=== PATIENT | female | born 1955 | race Caucasian/White ===

== ENCOUNTER 2019-08-01 00:18 | Emergency (ER) | payer MEDICARE ==
[~2019-08-01] VITALS: Ht 167.6 cm; Wt 96.0 kg
[2019-08-01] MEDS ORDERED: NAPR220C2 PO (00:36)
[2019-08-01] MEDS ORDERED: ACET-1600 PO (00:36)
[2019-08-01] MEDS ORDERED: IBUP200T64 PO (00:36)
[2019-08-01] MEDS ORDERED: KETOROLAC 30 MG/1 ML ONE (00:44)
[2019-08-01] MEDS ORDERED: KETOROLAC 30 MG/1 ML IVPush ONE (01:00)
[2019-08-01] MEDS ORDERED: METHOCARBAMOL 750 MG TABLET PO ONE (01:30)
[2019-08-01] MEDS ORDERED: METHOCARBAMOL 750 MG TABLET ONE (01:38)
[2019-08-01 01:52] VITALS: BP 150/66
--- NOTE | 2019-08-01 01:53 | NUR ---
pt able to ambulate steadily to bathroom, however with severe pain. orders for meds placed, med given. pt spouse here to take pt home.
== END 2019-08-01 01:54 | disposition home or self-care (01) ==
LOC: ED 01:41
DX: S39.012A Strain of muscle, fascia and tendon of lower back, initial encounter (principal); W19.XXXA Unspecified fall, initial encounter; Y93.89 Activity, other specified; Y92.89 Other specified places as the place of occurrence of the external cause; Y99.8 Other external cause status
CPT/HCPCS: 96374; 99283; J1885

== ENCOUNTER → 2019-11-24 | Outpatient (CLI) | payer MEDICARE ==
[~2019-11-24] MED LIST: ACET-1600 PO; IBUP200T64 PO; NAPR220C2 PO
== END | disposition home or self-care (01) ==
LOC: RAD 14:17
PROVIDERS: ATTEND Emergency Medicine
DX: N28.1 Cyst of kidney, acquired (principal); N39.0 Urinary tract infection, site not specified; R10.9 Unspecified abdominal pain; R31.9 Hematuria, unspecified
CPT/HCPCS: 76770

== ENCOUNTER 2020-02-26 12:15 | Outpatient (CLI) | payer MEDICARE ==
[2020-02-26] MEDS ORDERED: GLUC1CAP13 PO (12:49)
[2020-02-26] MEDS ORDERED: MV-M1TAB29 PO (12:49)
[2020-02-26] MEDS ORDERED: ASCO250T2 PO (12:49)
[2020-02-26] MEDS ORDERED: MAGN400T9 PO (12:49)
[2020-02-26] MEDS ORDERED: BROM500T2 PO (12:49)
[2020-02-26] MEDS ORDERED: CALC1CAP8 PO (12:53)
[2020-02-26] MEDS ORDERED: CRAN250C PO (12:53)
[2020-02-26] MEDS ORDERED: CHOL200074 PO (12:53)
[2020-02-26] MEDS ORDERED: MULT-658 PO (12:53)
[2020-02-26] MEDS ORDERED: FAMO1TAB3 PO (12:53)
[2020-02-26] MEDS ORDERED: turmeric PO (13:11)
[2020-02-26] MEDS ORDERED: coq-10 PO (13:11)
== END 2020-02-26 23:59 | disposition home or self-care (01) ==
LOC: STAR 12:15
PROVIDERS: ATTEND Orthopaedic Surgery
DX: Z01.818 Encounter for other preprocedural examination (principal); M17.11 Unilateral primary osteoarthritis, right knee; M25.561 Pain in right knee; I44.4 Left anterior fascicular block; I45.19 Other right bundle-branch block
CPT/HCPCS: 93005

== ENCOUNTER 2020-03-16 14:51 | Emergency (ER) | payer MEDICARE ==
[~2020-03-16] VITALS: Ht 167.6 cm; Wt 104.4 kg
[~2020-03-16 14:51] MED LIST changes: +ASCO250T2 PO; +BROM500T2 PO; +CALC1CAP8 PO; +CHOL200074 PO; +CRAN250C PO; +FAMO1TAB3 PO; +GLUC1CAP13 PO; +MAGN400T9 PO; +MULT-658 PO; +MV-M1TAB29 PO; +coq-10 PO; +turmeric PO
--- NOTE | 2020-03-16 15:20 | NUR ---
ASSUMED CARE OF PT AT THIS FROM TRIAGE. TAKEN TO ROOM VIA WHEELCHAIR. PT ABLE TO STAND AND TRANSFER SELF TO BED. LAZARO CHAVEZ AT BEDSIDE FOR EVALUATION. 65 Y/O F PRESENTS STATING "RIGHT KNEE MENISCUS REPAIR ON 03/11, LAST 4 DAYS NOTICED PAIN WHEN I WALK AND SOME SWELLING, MAYBE A WARM SPOT THIS MORNING, I CAME IN TO MAKE SURE IT IS NOT A BLOOD CLOT. HAD ONE 40 YEARS." CMS INTACT. PEDAL PULSE NORMAL AND STRONG. SLIGHT SWELLING NOTED TO RIGHT CALF, NO WARMTH OR ERYTHEMA NOTED. 3 SURGICAL INCISIONS WITH SUTURES IN PLACE TO RIGHT KNEE, EDGES WELL APPROXIMATED, MINIMAL REDNESS AT SITES, CDI, NO OOZING OR DISCHARGE NOTED. CONT PULSE OX, BP MONITORS APPLIED. VSS. CALL LIGHT IN REACH. FALL PRECAUTIONS IN PLACE. A&OX4. SPOUSE AT BEDSIDE. DENIES ANY CP, SOB OR PAIN AT THIS TIME. "THE PAIN IS ONLY SOMETIMES WHEN I WALK."
--- NOTE | 2020-03-16 15:49 | NUR ---
PT AWAITING US
--- NOTE | 2020-03-16 16:14 | NUR ---
US AT BEDSIDE
[2020-03-16 16:28] VITALS: BP 145/81
--- NOTE | 2020-03-16 16:28 | NUR ---
PT RESTING COMFORTABLY. DENIES ANY PAIN AND NEED TO USE RESTROOM. US REMAINS AT BEDSIDE. VSS. CALL LIGHT IN REACH. FALL PRECAUTIONS IN PLACE.
--- NOTE | 2020-03-16 17:27 | NUR ---
REPORT AND CARE TO BREAK SAMSON LOOMIS AT THIS TIME.
== END 2020-03-16 17:46 | disposition home or self-care (01) ==
LOC: ED 16:44
DX: S86.911A Strain of unspecified muscle(s) and tendon(s) at lower leg level, right leg, initial encounter (principal); Z86.718 Personal history of other venous thrombosis and embolism; X58.XXXA Exposure to other specified factors, initial encounter; Y93.89 Activity, other specified; Y92.89 Other specified places as the place of occurrence of the external cause; Y99.8 Other external cause status
CPT/HCPCS: 99284

== ENCOUNTER 2020-11-30 10:34 | Observation (INO) | payer MEDICARE ==
[~2020-11-30] VITALS: Ht 167.6 cm; Wt 106.9 kg
[~2020-11-30 10:34] MED LIST changes: +ASCO250T12 PO; -ASCO250T2 PO
--- NOTE | 2020-11-30 10:41 | NUR ---
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
--- NOTE | 2020-11-30 11:06 | NUR ---
THIS IS A 65 YO F W/ C/O CP STARTING AT 0300 THIS AM. PT DENIES SOB/DIZZINESS. PT REPORTS TAKING 325MG@ 0500 AND @0900 W/ RELIEF. 650MG TOTAL. PT DENIES CARDIAC HX. PT RESTING ON GURNEY W/ CALL LIGHT IN REACH AND SIDE RAILS UPX2. FAMILY AT BEDSIDE. CONNECTED TO ALL MONITORING. RESP EVEN AND UNLABORED, NADN.
[2020-11-30 11:41] LABS: BASOPHILS % (AUTO) 1 % (0-1); EOSINOPHILS % (AUTO) 2 % (1-7); LYMPHOCYTES % (AUTO) 25 % (22-44); MEAN CORPUSCULAR HEMOGLOBIN 30.3 pg (27.0-34.8); MEAN CORPUSCULAR HGB CONC 33.5 g/dL (32.4-35.8); MEAN PLATELET VOLUME 9.5 fL (7.4-10.4); MONOCYTES % (AUTO) 10 % (2-9); NEUTROPHILS % (AUTO) 62 % (42-75); PLATELET COUNT 281 x10^3/uL (130-400); RED BLOOD COUNT 4.55 x10^6/uL (3.82-5.3); RED CELL DISTRIBUTION WIDTH 14.2 % (9.6-15.2)
[2020-11-30 11:42] LABS: MD NO
[2020-11-30 11:52] LABS: ALBUMIN 3.6 g/dL (3.4-5.0); ANION GAP 6 mmol/L (5-15); CALCIUM 8.8 mg/dL (8.5-10.1); CHLORIDE 107 mmol/L (98-107); CREATININE 0.66 mg/dL (0.55-1.02)
[2020-11-30 11:57] LABS: TROPONIN I < 0.015 ng/mL (0.000-0.045)
--- NOTE | 2020-11-30 11:58 | NUR ---
PT AMBULATED TO THE BR INDEPENDENTLY W/ A STEADY GAIT.
--- NOTE | 2020-11-30 12:02 | NUR ---
ALL TESTS RESULTED. PT IS UP FOR RECHECK AT THIS TIME.
[2020-11-30] MEDS ORDERED: MAALOX/HYOSCYAMINE/LIDOCAINE 45 ML BTL ONE (12:57)
[2020-11-30] MEDS ORDERED: MAALOX/HYOSCYAMINE/LIDOCAINE 45 ML BTL PO ONE (13:00)
--- NOTE | 2020-11-30 13:24 | NUR ---
PIV STARTED, LABS DRAWN. AT BEDSIDE.
[2020-11-30] MEDS ORDERED: ONDANSETRON ODT 4 MG PO PRN (13:30)
[2020-11-30] MEDS ORDERED: morphine SULFATE 10 MG/ML, 1ML IVPush PRN (13:30)
[2020-11-30] MEDS ORDERED: ONDANSETRON 2MG/ML, 2ML IVPush PRN (13:30)
[2020-11-30] MEDS ORDERED: ACETAMINOPHEN 325 MG TABLET PO PRN (13:30)
--- NOTE | 2020-11-30 13:34 | NUR ---
REPORT GIVEN TO JACEK DAVIES. PT IS READY FOR TRANSPORT AT THIS TIME. RESP EVEN AND UNLABORED, FRANCI. Addendum: 11/30/20 at 1334 by CBRUCIAGA REPORT GIVEN TO DOMINICK DAVIES. PT IS READY FOR TRANSPORT AT THIS TIME. RESP EVEN AND UNLABOREDFRANCI.
[2020-11-30 14:02] LABS: TROPONIN I < 0.015 ng/mL (0.000-0.045)
[2020-11-30 14:17] VITALS: BP 136/87
[2020-11-30 19:22] LABS: TROPONIN I < 0.015 ng/mL (0.000-0.045)
[2020-11-30 19:39] VITALS: BP 137/83
[2020-12-01 02:15] VITALS: BP 114/71
[2020-12-01 04:56] LABS: CHOL/HDL RATIO 3.3; LDL/HDL RATIO 2.1 (0.5-3.0)
[2020-12-01] MEDS ORDERED: ASPIRIN 325 MG TABLET EC PO SCH (06:00)
[2020-12-01 06:59] VITALS: BP 127/73
[2020-12-01] MEDS ORDERED: REGADENOSON 0.4 MG/5 ML SYRINGE ONE (08:57)
== END 2020-12-01 12:27 | disposition home or self-care (01) ==
LOC: SUATTDRO 13:05 → ED 13:31 → INTOOBSV 13:39 → EDIP 13:39 → 5SO 14:03 → DCLOUNGE 12-01 12:22
PROVIDERS: ADMIT Hospitalist; ATTEND Hospitalist
DX: R07.89 Other chest pain (principal); K21.9 Gastro-esophageal reflux disease without esophagitis; I10 Essential (primary) hypertension; E66.9 Obesity, unspecified; Z88.0 Allergy status to penicillin; Z79.899 Other long term (current) drug therapy
CPT/HCPCS: 36415; 71045; 78452; 80048; 80061; 82040; 83880; 84484; 85025; 85379; 93005; 93017; 99285; A9502; G0378; J2785

== ENCOUNTER 2020-12-17 14:28 | Outpatient (CLI) | payer MEDICARE | END 2020-12-17 23:59 | disposition home or self-care (01) | LOC: CVU 14:28 | PROVIDERS: ATTEND Internal Medicine | DX: I08.8 Other rheumatic multiple valve diseases (principal); I11.9 Hypertensive heart disease without heart failure | CPT/HCPCS: 93306 ==